=== PATIENT | male | born 1995 | race African-American/Black ===

== ENCOUNTER 2016-10-01 01:09 | Emergency (ER) | payer SELFPAY ==
[~2016-10-01] VITALS: Ht 190.5 cm; Wt 86.0 kg
[2016-10-01 01:11] VITALS: BP 126/74; PULSE 70; RESP 16; TEMP 97.5; O2SAT 98
[2016-10-01] MEDS ORDERED: AZITHROMYCIN PWD FOR SUSP 1 GM PACKET PO ONE (02:45)
[2016-10-01] MEDS ORDERED: LIDOCAINE HCL 1% 50 ML VIAL IM ONE (02:45)
[2016-10-01] MEDS ORDERED: cefTRIAXone 250 MG VIAL IM ONE (02:45)
--- NOTE | 2016-10-01 02:47 | PD ---
HPI Chief Complaint: Complaint Time Seen by Provider: 02:38 Travel History International Travel<30 days: No Contact w/Intl Traveler<30days: No Traveled to known affect area: No History of Present Illness HPI 21-year-old male presents requesting evaluation. His girlfriend was recently diagnosed with chlamydia at [facility]. The patient wants to be tested for chlamydia. He has no symptoms. Denies dysuria, urethral discharge, skin lesions. No other complaints. PFSH Past Medical History Medical History: Denies Significant Hx Diminished Hearing: No Past Surgical History Surgical History: No Previous Surgery Social History Alcohol Use: Yes (OCC) Tobacco Use: No Substance Use: No Allergies-Medications (Allergen,Severity, Reaction): Coded Allergies: No Known Allergies (Unverified , 10/01/16) Review of Systems Except as stated in HPI: all other systems reviewed are Neg Physical Exam Narrative GENERAL: Well-developed well-nourished male in no acute distress GASTROINTESTINAL: Abdomen soft, non-tender, nondistended. Hepatic and splenic margins not palpable. : No urethral discharge, no skin lesions, no tenderness to palpation of the scrotum or testicles. Data Data Last Documented VS Vital Signs Date Time Temp Pulse Resp B/P Pulse Ox O2 Delivery O2 Flow Rate FiO2 10/01/16 01:11 97.5 70 16 126/74 98 Orders Gc And Chlamydia Pcr (10/01/16 02:41) Azithromycin Powd Pack (Zithromax Powd P (10/01/16 02:45) Ceftriaxone Inj (Rocephin Inj) (10/01/16 02:45) Lidocaine 1% Inj (50 Ml) (Xylocaine 1% I (10/01/16 02:45) MDM Medical Decision Making Medical Screen Exam Complete: Yes Emergency Medical Condition: Yes Medical Record Reviewed: Yes Differential Diagnosis STD screening exam, urethritis, chlamydia Narrative Course The patient will be treated empirically with Rocephin and azithromycin. Chlamydia and gonorrhea PCR is pending. Diagnosis Primary Impression: Encounter for screening examination for chlamydial infection Additional Instructions: Use barrier contraception. Follow-up with primary care physician. Med/Other Pt SpecificInfo: No Change to Meds Disposition: 01 DISCHARGE HOME Condition: Stable Luc Barreto Oct 01, 2016 02:47
[2016-10-01 08:28] LABS: CHLAMYDIA PCR NOT DETECTED (NOT DETECT); NEISSERIA PCR NOT DETECTED (NOT DETECT)
== END 2016-10-01 03:30 | disposition home or self-care (01) ==
LOC: NEPB 01:09
DX: Z11.3 Encounter for screening for infections with a predominantly sexual mode of transmission (principal)
CPT/HCPCS: 87491; 87591; 96372; 99283; J0696

== ENCOUNTER 2016-10-29 17:39 | Observation (INO) | payer OTHER ==
[2016-10-29] VITALS (8 sets, daily range): BP systolic 127–167; BP diastolic 74–90; PULSE 77–89; RESP 15–18; TEMP 98; O2SAT 97–100
[~2016-10-29] VITALS: Ht 190.5 cm; Wt 90.0 kg
[2016-10-29] MEDS ORDERED: oxyCODONE/ACETAMINOPHEN 5 MG/325 MG TAB PO ONE (18:15)
--- NOTE | 2016-10-29 18:16 | PD ---
HPI Chief Complaint: Injury Time Seen by Provider: 17:47 Travel History International Travel<30 days: No Contact w/Intl Traveler<30days: No Traveled to known affect area: No History of Present Illness HPI Patient is a 21-year-old male who presents to emergency room with complaints of pain to his left ankle. Patient reports that he was playing basketball, reports that he went to dunk a ball and when he landed, reports that he noticed increased pain to left ankle. Patient denies any fall after he injured his ankle. Reports that he was able to "hobble" off the court. Denies pain to hip/ knee. No other c/o. PFSH Past Medical History Medical History: Denies Significant Hx Diminished Hearing: No Tetanus Vaccination: Unknown Influenza Vaccination: No Past Surgical History Surgical History: No Previous Surgery Family History Family History: Negative Social History Alcohol Use: Yes (OCC) Tobacco Use: No Substance Use: No Allergies-Medications (Allergen,Severity, Reaction): Coded Allergies: No Known Allergies (Unverified , 10/29/16) Reported Meds & Prescriptions Reported Meds & Active Scripts Active Ibuprofen 600 Mg Tab 600 Mg PO Q6H PRN Percocet (Oxycodone-Acetaminophen) 5-325 mg Tab 1 Tab PO Q6H PRN Review of Systems General / Constitutional: No: Fever Eyes: No: Visual changes HENT: No: Headaches Cardiovascular: No: Chest Pain or Discomfort Respiratory: No: Shortness of Breath Gastrointestinal: No: Abdominal Pain Genitourinary: No: Dysuria Musculoskeletal: Positive: Limited ROM, Edema, Pain (left ankle) Skin: No Rash Neurologic: No: Weakness Psychiatric: No: Depression Endocrine: No: Polydipsia Hematologic/Lymphatic: No: Easy Bruising Physical Exam Narrative GENERAL: nad SKIN: Warm and dry. HEAD: Atraumatic. Normocephalic. EYES: Pupils equal and round. No scleral icterus. No injection or drainage. ENT: No nasal bleeding or discharge. Mucous membranes pink and moist. NECK: Trachea midline. No JVD. CARDIOVASCULAR: Regular rate and rhythm. No murmur appreciated. RESPIRATORY: No accessory muscle use. Clear to auscultation. Breath sounds equal bilaterally. GASTROINTESTINAL: Abdomen soft, non-tender, nondistended. Hepatic and splenic margins not palpable. MUSCULOSKELETAL: RLE: normal exam LLE: pt with increased swelling to left ankle, pt with increased pain to plantar surface of foot near heal, no signs of open fracture, pulses intact, neurovascularly intact NEUROLOGICAL: Awake and alert. No obvious cranial nerve deficits. Motor grossly within normal limits. Normal speech. PSYCHIATRIC: Appropriate mood and affect; insight and judgment normal. Data Data Last Documented VS Vital Signs Date Time Temp Pulse Resp B/P Pulse Ox O2 Delivery O2 Flow Rate FiO2 10/29/16 17:49 Room Air 10/29/16 17:42 98.0 80 15 134/90 97 Orders Oxycodone-Acetamin 5-325 Mg (Percocet (10/29/16 18:15) Ice/Cold Pack (10/29/16 18:01) Ankle, Complete ([id number]) (10/29/16 ) Foot, Complete ([id number]) (10/29/16 ) Splint Or Brace Apply/Monitor (10/29/16 19:02) MDM Medical Decision Making Medical Screen Exam Complete: Yes Emergency Medical Condition: Yes Interpretation(s) Vital Signs Date Time Temp Pulse Resp B/P Pulse Ox O2 Delivery O2 Flow Rate FiO2 10/29/16 17:49 Room Air 10/29/16 17:42 98.0 80 15 134/90 97 Differential Diagnosis ankle fracture, ankle sprain, foot fracture Narrative Course Patient is a 21-year-old male who presents to emergency with complaints of left- sided ankle pain. Patient reports that he was playing basketball went to dunk a ball and injured his ankle when he landed. Denies any fall. Denies trauma to head/neck. Reports increased pain and swelling to left foot/ankle. xrays ordered of foot and ankle. Diagnosis Primary Impression: Ankle sprain Qualified Code: S93.402A - Sprain of left ankle, unspecified ligament, initial encounter Referrals: James Cortez MD Patient Instructions: General Instructions, Narcotic given in the ED Additional Instructions: Please provide patient with a copy of his x-ray results at discharge Please follow-up with orthopedic surgery, call first thing Monday morning for earliest appointment Please ice and elevate your lower extremity Do not drive or operate heavy machinery while taking narcotic pain medications Med/Other Pt SpecificInfo: Prescription(s) given Scripts Ibuprofen 600 Mg [id number] Mg PO Q6H PRN (Pain/Inflammation) #40 TAB Ref 0 Prov:Sissy French DO 10/29/16 Oxycodone-Acetaminophen (Percocet)5-325 mg Tab1 Tab PO Q6H PRN (PAIN) #12 TAB Ref 0 Prov:Sissy French DO 10/29/16 Disposition: 01 DISCHARGE HOME Condition: Stable Sissy French DO Oct 29, 2016 18:16
[2016-10-29] MEDS ORDERED: PERC5TAB12 PO (18:51)
[2016-10-29] MEDS ORDERED: IBUP-232 PO (18:51)
--- NOTE | 2016-10-29 19:43 | RADRPT ---
EXAM DATE/TIME: 10/29/2016 18:24 [facility] COMPARISON: No previous studies available for comparison. INDICATIONS : Left ankle pain from fall. MEDICAL HISTORY : None. SURGICAL HISTORY : None. ENCOUNTER: Initial ACUITY: 1 day PAIN SCORE: 10/10 LOCATION: Bilateral mid bottom foot. FINDINGS: There is abnormal widening of the lateral aspect of the ankle joint. There is dislocation at this yassine nt abnormal widening of the calcaneocuboid joint small avulsion fracture suspected between the calcan eus and cuboid. CONCLUSION: 1. Dislocation at the talonavicular joint and abnormal widening of the calcaneocuboid joint with a sm all avulsion fracture. Also abnormal widening of the lateral aspect of the ankle joint. Barrington Lowery MD on October 29, 2016 at 19:40 Board Certified Radiologist. This report was verified electronically.
[2016-10-29] MEDS ORDERED: MORPHINE SULFATE 8 MG/ML INJ IM ONE (19:45)
--- NOTE | 2016-10-29 19:45 | RADRPT ---
EXAM DATE/TIME: 10/29/2016 18:29 [facility] COMPARISON: No previous studies available for comparison. INDICATIONS : Left foot pain from fall. MEDICAL HISTORY : None. SURGICAL HISTORY : None. ENCOUNTER: Initial ACUITY: 1 day PAIN SCORE: 10/10 LOCATION: Bilateral mid bottom foot. FINDINGS: Examination reveals a dislocation at the talonavicular joint and abnormal widening of the calcaneocub oid joint associated with a small avulsion fracture. Metatarsals and phalanges appear intact. CONCLUSION: 1. Dislocation of the talonavicular joint and abnormal widening of the calcaneocuboid joint with smal l avulsion fracture. Barrington Lowery MD on October 29, 2016 at 19:42 Board Certified Radiologist. This report was verified electronically.
[2016-10-29] MEDS ORDERED: PROPOFOL 200 MG/20 ML AMP IV ONE (20:15)
--- NOTE | 2016-10-29 20:42 | PD ---
Data Data Last Documented VS Vital Signs Date Time Temp Pulse Resp B/P Pulse Ox O2 Delivery O2 Flow Rate FiO2 10/29/16 20:22 81 17 167/74 99 Room Air 10/29/16 17:42 98.0 Orders Oxycodone-Acetamin 5-325 Mg (Percocet (10/29/16 18:15) Ice/Cold Pack (10/29/16 18:01) Ankle, Complete ([id number]) (10/29/16 ) Foot, Complete ([id number]) (10/29/16 ) Splint Or Brace Apply/Monitor (10/29/16 19:02) Morphine Inj (Morphine Inj) (10/29/16 19:45) Propofol 200 Mg/20 Ml Inj (Diprivan 200 (10/29/16 20:15) Complete Blood Count With Diff (10/29/16 20:14) Basic Metabolic Panel (Bmp) (10/29/16 20:14) Iv Access Insert/Monitor (10/29/16 20:14) Ecg Monitoring (10/29/16 20:14) Oximetry (10/29/16 20:14) MDM Supervised Visit with GERRY: No Procedures Procedure Narrative After the risks and benefits were discussed the following procedure was performed: MODERATE SEDATION: The patient was placed on a order desk clerk and pulse oximetry. An ambu bag and suction was immediately available at bedside. The patient was monitored by the nurse. Oxygen saturation, and tidal capnography, heart rate and blood pressure were monitored. Procedural sedation was acheived using 140 mg propofol. The patient was observed until awake and alert. Procedural Sedation time in attendance was 20 minutes. Diagnosis Primary Impression: Ankle sprain Qualified Code: S93.402A - Sprain of left ankle, unspecified ligament, initial encounter Referrals: James Cortez MD Patient Instructions: General Instructions, Narcotic given in the ED Additional Instruction: Please provide patient with a copy of his x-ray results at discharge Please follow-up with orthopedic surgery, call first thing Monday morning for earliest appointment Please ice and elevate your lower extremity Do not drive or operate heavy machinery while taking narcotic pain medications Scripts Ibuprofen 600 Mg Aid159 Mg PO Q6H PRN (Pain/Inflammation) #40 TAB Ref 0 Prov:Sissy French DO 10/29/16 Oxycodone-Acetaminophen (Percocet)5-325 mg Tab1 Tab PO Q6H PRN (PAIN) #12 TAB Ref 0 Prov:Sissy French DO 10/29/16 Disposition: 01 DISCHARGE HOME Condition: Stable Jennifer Carreno MD Oct 29, 2016 20:42
[2016-10-29 21:00] LABS: AUTOMATED NEUTROPHIL # 10.9 TH/MM3 (1.8-7.7); BASOPHIL % 0.3 % (0.0-2.0); EOSINOPHIL % 0.2 % (0.0-4.0); HEMATOCRIT 47.4 % (39.0-51.0); HEMO FLAGS DIFF FINAL; LYMPH % 7.1 % (9.0-44.0); LYMPHOCYTE # 0.9 TH/MM3 (1.0-4.8); MEAN CELL VOLUME 86.9 FL (80.0-100.0); MEAN CORPUSCULAR HEMOGLOBIN 29.3 PG (27.0-34.0); MEAN CORPUSCULAR HGB CONC 33.7 % (32.0-36.0); MONO % 4.3 % (0.0-8.0); NEUT % 88.1 % (16.0-70.0); PLATELET COUNT 293 TH/MM3 (150-450); RED BLOOD COUNT 5.45 MIL/MM3 (4.50-5.90); RED CELL DISTRIBUTION WIDTH 13.4 % (11.6-17.2); WHITE BLOOD COUNT 12.3 TH/MM3 (4.0-11.0)
[2016-10-29] MEDS ORDERED: ACETAMINOPHEN/HYDROcodone 325 MG/5 MG TAB PO PRN (21:15)
[2016-10-29] MEDS ORDERED: SODIUM CHLORIDE 0.9% FLUSH 5 ML FLUSH FLUSH PRN (21:15)
[2016-10-29] MEDS ORDERED: BISACODYL 10 MG SUPP PR PRN (21:15)
[2016-10-29] MEDS ORDERED: ACETAMINOPHEN 325 MG TAB PO PRN (21:15)
[2016-10-29] MEDS ORDERED: ONDANSETRON HCL 4 MG/2 ML VIAL IVP PRN (21:15)
--- NOTE | 2016-10-29 21:17 | HHI.HP ---
[facility] Robert Henriquez MD Admission Diagnosis Diagnoses: (1) Foot fracture Diagnosis: Principal (2) HTN (hypertension) Diagnosis: Principal (3) Leukocytosis Diagnosis: Principal Travel History International Travel<30 Days: No Contact w/Intl Traveler <30 Da: No Traveled to Known Affected Are: No History of Present Illness This is a 21-year-old male with no significant PMH who was brought to the ER with complaints of left ankle pain after playing basketball. Pt states he went to [employer] and when he landed he felt immediate pain to left ankle/foot. Unable to ambulate after injury. On arrival, BP 167/74, HR 81, O2 sat 99% on RA, Afebrile. WBC 12.3. Chemistry unremarkable. Foot X-ray with dislocation of talonavicular joint and abnormal widening of calcaneocuboid joint w/ small avulsion fracture, s/p reduction in ER. Dr. Cortez consulted by ER physician, plan is for surgical intervention in am. Review of Systems Other ROS: 14 point review of systems otherwise negative. Past Family Social History Past Medical History PMH: None Past Surgical History PAST SURGICAL HISTORY: None Allergies: Coded Allergies: No Known Allergies (Unverified , 10/29/16) Family History PAST FAMILY HISTORY: Reviewed. No h/o DM or CAD Social History PAST SOCIAL HISTORY: Occasional alcohol. Negative for tobacco or drugs. Physical Exam Vital Signs Vital Signs Date Time Temp Pulse Resp B/P Pulse Ox O2 Delivery O2 Flow Rate FiO2 10/29/16 20:57 89 18 152/76 100 Nasal Cannula 3 10/29/16 20:39 100 Nasal Cannula 3.00 10/29/16 20:39 100 10/29/16 20:39 100 3.00 10/29/16 20:35 81 16 157/77 100 Nasal Cannula 3 10/29/16 20:22 81 17 167/74 99 Room Air 10/29/16 20:21 99 Room Air 10/29/16 19:51 77 18 164/90 100 Room Air 10/29/16 17:49 Room Air 10/29/16 17:42 98.0 80 15 134/90 97 Physical Exam PE: GENERAL: Pleasant young black male in no acute distress. HEENT: PERRLA, EOMI. No scleral icterus or conjunctival pallor. No lid lag or facial droop. CARDIOVASCULAR: Regular rate and rhythm. No obvious murmurs to auscultation. No chest tenderness to palpation. RESPIRATORY: No obvious rhonchi or wheezing. Clear to auscultation. Breath sounds equal bilaterally. GASTROINTESTINAL: Abdomen soft, non-tender, nondistended. BS normal. MUSCULOSKELETAL: Left ankle s/p reduction. Decreased ROM due to injury. NEUROLOGICAL: Awake, alert and oriented x4. No focal neurologic deficits. Moving both upper and lower extremities spontaneously. Laboratory Laboratory Tests Test 10/29/16 20:25 White Blood Count 12.3 Red Blood Count 5.45 Hemoglobin 16.0 Hematocrit 47.4 Mean Corpuscular Volume 86.9 Mean Corpuscular Hemoglobin 29.3 Mean Corpuscular Hemoglobin 33.7 Concent Red Cell Distribution Width 13.4 Platelet Count 293 Mean Platelet Volume 8.1 Neutrophils (%) (Auto) 88.1 Lymphocytes (%) (Auto) 7.1 Monocytes (%) (Auto) 4.3 Eosinophils (%) (Auto) 0.2 Basophils (%) (Auto) 0.3 Neutrophils # (Auto) 10.9 Lymphocytes # (Auto) 0.9 Monocytes # (Auto) 0.5 Eosinophils # (Auto) 0.0 Basophils # (Auto) 0.0 CBC Comment DIFF FINAL Differential Comment Result Diagram: 10/29/162024 Assessment and Plan Problem List: (1) Foot fracture ICD Code: S92.909A Status: Acute (2) Leukocytosis ICD Code: D72.829 Status: Acute (3) HTN (hypertension) ICD Code: I10 Status: Acute Assessment and Plan A/P: 1. Left Foot Fx: s/p injury while playing basketball. X-ray w/ dislocation at talonavicular joint and abnormal widening of the calcaneocuboid joint with avulsion fracture, images reviewed by me. Dr. Cortez consulted by ER physician , plan for surgical intervention in am. NPO, IVF, analgescis/antiemetics as needed. 2. Leukocytosis: WBC 12, likely secondary to acute injury/fall. No evidence of infection. Repeat labs in am. 3. HTN: BP 160's on arrival, likely compounded by pain. Will monitor, no h/o HTN. Pain control. 4. DVT Prophylaxis: Anticoagulation post op per Ortho 5. Social work for d/c planning as needed. 6. Case discussed w/ ER physician at length Physician Certification 2 Midnight Certification Type: Admission for Inpatient Services Order for Inpatient Services The services are ordered in accordance with Medicare regulations or non- Medicare payer requirements, as applicable. In the case of services not specified as inpatient-only, they are appropriately provided as inpatient services in accordance with the 2-midnight benchmark. Estimated LOS (days): 2 days is the estimated time the patient will need to remain in the hospital, assuming treatment plan goals are met and no additional complications. Post-Hospital Plan: Not yet determined Estefany Cardenas MD Oct 29, 2016 21:17
[2016-10-29 21:21] LABS: BICARBONATE 29.4 MEQ/L (21.0-32.0); POTASSIUM 4.1 MEQ/L (3.5-5.1)
[2016-10-29] MEDS: SODIUM CHLOR 0.9% 1000 ML INJ 1,000 ML IV SCH (21:38)
[2016-10-29] MEDS: MORPHINE SULFATE 4 MG/ML INJ IV PRN (21:47)
--- NOTE | 2016-10-29 21:49 | RADRPT ---
EXAM DATE/TIME: 10/29/2016 21:10 [facility] COMPARISON: No previous studies available for comparison. INDICATIONS : Trauma; left foot pain. Post reduction. RADIATION DOSE: 7.29 CTDIvol (mGy) MEDICAL HISTORY : None SURGICAL HISTORY : None. ENCOUNTER: Initial ACUITY: 1 day PAIN SCALE: 10/10 LOCATION: Left foot TECHNIQUE: Volumetric scanning of the foot was performed. Using automated exposure control and adjustment of th e mA and/or kV according to patient size, radiation dose was kept as low as reasonably achievable to obtain optimal diagnostic quality images. FINDINGS: Previous talonavicular dislocations or plain film is a slightly comminuted fracture through the infer ior aspect navicular. Several small avulsed bone fragments are present in the distal talus and adjace nt to the calcaneocuboid joint. Previous abnormal widening of the calcaneocuboid joint is tiny avulsi on fracture of the anterior aspect of the calcaneus. The remainder of the tarsal bones and the metata rsals and phalanges appear intact. The ankle mortise appears intact. CONCLUSION: 1. Reduction of previous dislocation at the talonavicular joint with mildly comminuted fracture of th e inferior aspect of the navicular. Small avulsion fractures remain adjacent to the anterior calcaneu s and calcaneocuboid joint. No significant abnormal widening of the calcaneocuboid joint or of the an kle joint. Barrington Lowery MD on October 29, 2016 at 21:41 Board Certified Radiologist. This report was verified electronically.
--- NOTE | 2016-10-29 23:40 | PD ---
Physical Exam Narrative GENERAL: Well-nourished, well-developed patient. SKIN: Warm and dry. HEAD: Normocephalic and atraumatic. EYES: No injection or drainage. ENT: No nasal drainage noted. NECK: Supple, trachea midline. CARDIOVASCULAR: Regular rate and rhythm RESPIRATORY: Breath sounds equal bilaterally. No accessory muscle use. GASTROINTESTINAL: Abdomen soft, non-tender, nondistended. EXTREMITIES: Pain with palpation of left foot with deformity noted, no pain with other joints , neurovascularly intact, no lacerations over, compartments soft. NEUROLOGICAL: Awake and alert. Motor and sensory grossly within normal limits. Normal speech. Data Data Last Documented VS Vital Signs Date Time Temp Pulse Resp B/P Pulse Ox O2 Delivery O2 Flow Rate FiO2 10/29/16 20:57 89 18 152/76 100 Nasal Cannula 3 10/29/16 17:42 98.0 Orders Oxycodone-Acetamin 5-325 Mg (Percocet (10/29/16 18:15) Ice/Cold Pack (10/29/16 18:01) Ankle, Complete ([id number]) (10/29/16 ) Foot, Complete ([id number]) (10/29/16 ) Splint Or Brace Apply/Monitor (10/29/16 19:02) Morphine Inj (Morphine Inj) (10/29/16 19:45) Propofol 200 Mg/20 Ml Inj (Diprivan 200 (10/29/16 20:15) Complete Blood Count With Diff (10/29/16 20:14) Basic Metabolic Panel (Bmp) (10/29/16 20:14) Iv Access Insert/Monitor (10/29/16 20:14) Ecg Monitoring (10/29/16 20:14) Oximetry (10/29/16 20:14) Splint Or Brace Apply/Monitor (10/29/16 20:45) Ct Foot W/O Contrast (10/29/16 ) Admit To Inpatient (10/29/16 ) Vital Signs (Adult) Q4H (10/29/16 21:14) Activity Bed Rest (10/29/16 21:14) Diet Npo (10/30/16 Breakfast) Sodium Chlor 0.9% 1000 Ml Inj (Ns 1000 M (10/29/16 21:14) Sodium Chloride 0.9% Flush (Ns Flush) (10/29/16 21:15) Sodium Chloride 0.9% Flush (Ns Flush) (10/30/16 09:00) Ondansetron Inj (Zofran Inj) (10/29/16 21:15) Bisacodyl Supp (Dulcolax Supp) (10/29/16 21:15) Comprehensive Metabolic Panel (10/30/16 06:00) Complete Blood Count With Diff (10/30/16 06:00) Acetaminophen (Tylenol) (10/29/16 21:15) Acetamin-Hydrocod 325-5 Mg ([place] 5-325 (10/29/16 21:15) Morphine Inj (Morphine Inj) (10/29/16 21:15) Inpatient Certification (10/29/16 ) Consult Orthopedic (10/29/16 ) (Hub Use Only)Inp Phy Cons/Ref (10/29/16 ) Admit Order (Ed Use Only) (10/29/16 21:34) Labs Laboratory Tests Test 10/29/16 20:25 White Blood Count 12.3 TH/MM3 Red Blood Count 5.45 MIL/MM3 Hemoglobin 16.0 GM/DL Hematocrit 47.4 % Mean Corpuscular Volume 86.9 FL Mean Corpuscular Hemoglobin 29.3 PG Mean Corpuscular Hemoglobin 33.7 % Concent Red Cell Distribution Width 13.4 % Platelet Count 293 TH/MM3 Mean Platelet Volume 8.1 FL Neutrophils (%) (Auto) 88.1 % Lymphocytes (%) (Auto) 7.1 % Monocytes (%) (Auto) 4.3 % Eosinophils (%) (Auto) 0.2 % Basophils (%) (Auto) 0.3 % Neutrophils # (Auto) 10.9 TH/MM3 Lymphocytes # (Auto) 0.9 TH/MM3 Monocytes # (Auto) 0.5 TH/MM3 Eosinophils # (Auto) 0.0 TH/MM3 Basophils # (Auto) 0.0 TH/MM3 CBC Comment DIFF FINAL Differential Comment Sodium Level 137 MEQ/L Potassium Level 4.1 MEQ/L Chloride Level 101 MEQ/L Carbon Dioxide Level 29.4 MEQ/L Anion Gap 7 MEQ/L Blood Urea Nitrogen 13 MG/DL Creatinine 1.18 MG/DL Estimat Glomerular Filtration 94 ML/MIN Rate Random Glucose 103 MG/DL Calcium Level 9.1 MG/DL [facility] Supervised Visit with GERRY: No Interpretation(s) Last 24 hours Impressions Lower Extremity CT 10/29/16 Signed Impressions: Service Date/Time: Saturday, October 29, 2016 21:10 - CONCLUSION: 1. Reduction of previous dislocation at the talonavicular joint with mildly comminuted fracture of the inferior aspect of the navicular. Small avulsion fractures remain adjacent to the anterior calcaneus and calcaneocuboid joint. No significant abnormal widening of the calcaneocuboid joint or of the ankle joint. Barrington Lowery MD Foot X-Ray 10/29/16 Signed Impressions: Service Date/Time: Saturday, October 29, 2016 18:29 - CONCLUSION: 1. Dislocation of the talonavicular joint and abnormal widening of the calcaneocuboid joint with small avulsion fracture. Barrington Lowery MD Ankle X-Ray 10/29/16 Signed Impressions: Service Date/Time: Saturday, October 29, 2016 18:24 - CONCLUSION: 1. Dislocation at the talonavicular joint and abnormal widening of the calcaneocuboid joint with a small avulsion fracture. Also abnormal widening of the lateral aspect of the ankle joint. Barrington Lowery MD Narrative Course Signed over to me to follow x-rays and reevaluate, x-rays with talonavicular dislocation and widening of calcaneal cuboid joint with avulsion fracture will discuss with podiatry Patient updated and agrees to reduction Patient updated and agrees to admission feeling better after reduction Procedures Procedure Narrative After the risks and benefits were discussed the following procedure was performed: With conscious sedation using propofol with Dr. Carreno, I personally reduced the talonavicular on the left was successful with downward pressure and countertraction, was neurovascularly intact after, patient tolerated procedure. Physician Communication Physician Communication dr miller states to discuss with ortho given he does not have ankle privileges dr melendez states to reduce and call back dr melendez states to check ct and admit to medicine and he will see patient, npo after midnight dr bermudez agrees to admit Diagnosis Primary Impression: Closed navicular fracture of left foot Additional Impression: Closed dislocation of navicular bone of left foot Margareth May MD Oct 29, 2016 23:39
[2016-10-30] MEDS: LACTATED RINGER'S 1000 ML IV SCH
[2016-10-30 00:25] VITALS: BP 145/81; PULSE 73; RESP 16; TEMP 98.2; O2SAT 98
[2016-10-30] MEDS: MORPHINE SULFATE 4 MG/ML INJ IV PRN ×4 (00:43→12:16)
[2016-10-30 04:25] VITALS: BP 141/77; PULSE 72; RESP 16; TEMP 96.8; O2SAT 99
[2016-10-30 08:00] VITALS: BP 149/93; PULSE 69; RESP 18; TEMP 97.6; O2SAT 100
[2016-10-30 08:07] LABS: AUTOMATED NEUTROPHIL # 6.9 TH/MM3 (1.8-7.7); BASOPHIL % 0.2 % (0.0-2.0); EOSINOPHIL # 0.1 TH/MM3 (0-0.4); HEMATOCRIT 42.3 % (39.0-51.0); HEMO FLAGS DIFF FINAL; LYMPH % 23.6 % (9.0-44.0); LYMPHOCYTE # 2.5 TH/MM3 (1.0-4.8); MEAN CELL VOLUME 87.1 FL (80.0-100.0); MEAN CORPUSCULAR HEMOGLOBIN 29.7 PG (27.0-34.0); MEAN CORPUSCULAR HGB CONC 34.2 % (32.0-36.0); MONO % 11.1 % (0.0-8.0); NEUT % 64.1 % (16.0-70.0); PLATELET COUNT 239 TH/MM3 (150-450); RED BLOOD COUNT 4.86 MIL/MM3 (4.50-5.90); RED CELL DISTRIBUTION WIDTH 13.2 % (11.6-17.2); WHITE BLOOD COUNT 10.7 TH/MM3 (4.0-11.0)
[2016-10-30 08:32] LABS: ALT (GPT) 24 U/L (12-78); ANION GAP 6 MEQ/L (5-15); AST (GOT) 40 U/L (15-37); BICARBONATE 30.3 MEQ/L (21.0-32.0); BLOOD UREA NITROGEN 10 MG/DL (7-18); CHLORIDE 106 MEQ/L (98-107); GLOMERULAR FILTRATION RATE 101 ML/MIN (>89); POTASSIUM 4.2 MEQ/L (3.5-5.1); SODIUM (NA) 142 MEQ/L (136-145)
[2016-10-30 08:34] LABS: ALKALINE PHOSPHATASE 67 U/L (45-117); TOTAL BILIRUBIN ADULT 0.9 MG/DL (0.2-1.0)
[2016-10-30] MEDS: SODIUM CHLORID 0.9% 500 ML IV SCH ×2 (09:25)
[2016-10-30] MEDS: SODIUM CHLORIDE 0.9% FLUSH 5 ML FLUSH FLUSH SCH ×2 (09:25→21:38)
[2016-10-30] MEDS: SODIUM CHLOR 0.9% 1000 ML INJ 1,000 ML IV SCH (09:30)
[2016-10-30 12:00] VITALS: BP 145/97; PULSE 67; RESP 18; TEMP 96.3; O2SAT 100
[2016-10-30 16:00] VITALS: BP 153/73; PULSE 67; RESP 18; TEMP 96.6; O2SAT 98
--- NOTE | 2016-10-30 16:34 | MB ---
cc: DANIEL ALVARENGA M.D. DATE OF CONSULTATION: 10/30/2016 REASON FOR CONSULTATION: Left foot dislocation. HISTORY OF PRESENT ILLNESS: The patient is a 21-year-old man who does not significant past medical history. He came to [facility] after sustaining an injury to the left foot. He said that he jumped off the foot and felt something happen rate where he developed pain. He went up for an alley-oop and remembered that he did not want to come down from it because he was afraid of landing on that foot. He was brought to [facility] with significant amount of pain about the mid foot. X-rays were taken. Initially podiatry was consulted. They recommended orthopedic evaluation. I discussed the results of the x-rays with the emergency room physician, which showed a talonavicular dislocation and what looked like an impaction fracture of the inferior aspect of the navicular. I discussed with the emergency room physician methods for reducing this dislocation as this is a fairly uncommon type of dislocation. The ER physician was able to successfully reduce the foot in the ER and they then obtained a CT scan which I reviewed with the ER physician. The patient was admitted and placed on a cold machine. PAST MEDICAL HISTORY: Medical history is negative. PAST SURGICAL HISTORY: Surgical history is - none. ALLERGIES: NO KNOWN DRUG ALLERGIES. FAMILY HISTORY: Noncontributory. SOCIAL HISTORY: The patient drinks occasional alcohol. Negative for tobacco or drugs. REVIEW OF SYSTEMS: A twelve-point review of systems is negative except as noted in the history of present illness. PHYSICAL EXAMINATION: VITAL SIGNS: The patient's temperature is 98.2, pulse is 77, respirations 16, blood pressure 145/97. GENERAL: He is in no acute distress due to pain. HEAD, EYES, EARS, NOSE, THROAT: The patient's head is atraumatic. The oropharynx is moist. Extraocular muscles intact. NECK: The neck is supple. HEART: Regular rate and rhythm. LUNGS: Clear to auscultation bilaterally. ABDOMEN: The abdomen is soft, nontender and nondistended. NEUROLOGIC: He has normal affect, insight and judgment. EXTREMITIES: His left foot is currently splinted. He has brisk capillary refill about the toes. He has normal sensation about the toes. Examination of the right lower extremity and the bilateral upper extremities shows good range of motion and normal alignment. No tenderness. LABORATORY DATA: Laboratory studies shows white cell count of 12.3, hematocrit 47.4, platelets 293,000. IMAGING STUDIES: I reviewed the images and the report of the x-rays and also the CT scan which shows the patient has a talonavicular dislocation and also widening of the calcaneocuboid joint and there is also evidence of some shifting of the talus with some tilting. The postreduction CT scan shows that the dislocation has been reduced and the previous widening of those other joints has been reduced as well. The patient has a fractured inferior aspect of the navicular which is interarticular by encompasses only a small portion. There are some avulsions that are noted around the anterior calcaneus and the calcaneocuboid joint as well. IMPRESSION: Left foot status post talonavicular dislocation with widening of the calcaneocuboid joint and also of the mortise with some tilting status post closed reduction with overall very good alignment and small avulsion fractures of the anterior calcaneus and calcaneocuboid joint with fracture interarticular inferior aspect of the navicular. DECISION-MAKING: This is a very complex injury that this patient has sustained. I do recommend nonoperative management for this condition. We did discuss the possibility of surgery for the inferior impaction fracture of the navicular, although given the results of the CT scan, I feel that it would probably be best to move forward with nonoperative management as this area would be very difficult to obtain a reduction without significant soft tissue exposure and I do not feel that this would significantly improve this patient's outcome. He does have significant risk for chronic stiffness and pain around these joints and development of arthritis as well due to the injury. He should be non-weightbearing. He understands this. He can be discharged as soon as his pain is well-controlled with followup in the office in one week. Daniel Alvarenga MD /JCFay /2:42 PM /4:21 PM
[2016-10-30] MEDS ORDERED: MISC-226 (16:56)
--- NOTE | 2016-10-30 17:01 | HHI.PR ---
Subjective Remarks Patient seen this morning.. Says he feels well. Denies any chest pain or shortness of breath. Denies any nausea or vomiting. Reports still with pain in left foot. Liter discussed with nurse. Discussed post surgery. Has been switched over to by mouth pain medications. We'll start on regular diet. Equipment not ready at home yet per nursing. Objective Vital Signs Date Time Temp Pulse Resp B/P Pulse Ox O2 Delivery O2 Flow Rate FiO2 10/30/16 12:00 96.3 67 18 145/97 100 10/30/16 08:00 97.6 69 18 149/93 100 10/30/16 04:25 96.8 72 16 141/77 99 10/30/16 00:25 98.2 73 16 145/81 98 10/29/16 22:04 77 16 127/78 100 Room Air 10/29/16 20:57 89 18 152/76 100 Nasal Cannula 3 10/29/16 20:39 100 Nasal Cannula 3.00 10/29/16 20:39 100 10/29/16 20:39 100 3.00 10/29/16 20:35 81 16 157/77 100 Nasal Cannula 3 10/29/16 20:22 81 17 167/74 99 Room Air 10/29/16 20:21 99 Room Air 10/29/16 19:51 77 18 164/90 100 Room Air 10/29/16 17:49 Room Air 10/29/16 17:42 98.0 80 15 134/90 97 I/O 10/29/16 10/29/16 10/29/16 10/30/16 10/30/16 10/30/16 07:00 15:00 23:00 07:00 15:00 23:00 Intake Total 0 ml 267 ml Balance 0 ml 267 ml Intake Oral 0 ml IV Total 267 ml # Voids 1 # Bowel Movements 0 Result Diagram: 10/30/16 0650 10/30/16 0650 Objective Remarks GENERAL: Patient lying in bed. Appears comfortable. Left foot dressed. Intact. Alert and oriented 3. SKIN: Warm and dry. HEAD: Normocephalic. EYES: No scleral icterus. No injection or drainage. NECK: Supple, trachea midline. No JVD. CARDIOVASCULAR: Regular rate and rhythm without murmurs, gallops, or rubs. RESPIRATORY: Breath sounds equal bilaterally. No accessory muscle use. GASTROINTESTINAL: Abdomen soft, non-tender, nondistended. MUSCULOSKELETAL: No cyanosis, or edema. BACK: Nontender without obvious deformity. No CVA tenderness. A/P Assessment and Plan //Left foot fracture. Cleared by surgery for discharge. Follow-up with orthopedics as outpatient. -Adjust pain meds to by mouth. -Can discharge home when patient able to use crutches Hypertensive. Blood pressure up to 160s systolic on arrival. 140s today systolic. Likely secondary to pain. Pain controlled Leukocytosis. Resolved Prophylaxis. As per surgical service. Discharge Planning Can discharge when able to use crutches. When tolerating diet. When pain controlled on by mouth pain medications. Demond Mcginnis MD Oct 30, 2016 17:01
[2016-10-30] MEDS: ACETAMINOPHEN/HYDROcodone 325 MG/10 MG TAB PO PRN ×2 (17:31→21:37)
[2016-10-30 20:55] VITALS: BP 138/80; PULSE 75; RESP 16; TEMP 96; O2SAT 99
[2016-10-30] MEDS ORDERED: INSULIN HUMAN REGULAR 1,000 UNITS/10 ML VIAL SQ PRN (22:45)
[2016-10-31] MEDS: LACTATED RINGER'S 1000 ML IV SCH
[2016-10-31 00:45] VITALS: BP 147/77; PULSE 76; RESP 16; TEMP 97.3; O2SAT 98
[2016-10-31] MEDS: ACETAMINOPHEN/HYDROcodone 325 MG/10 MG TAB PO PRN ×4 (01:35→16:27)
[2016-10-31 08:00] VITALS: BP 132/83; PULSE 68; RESP 16; TEMP 95.7; O2SAT 98
[2016-10-31] MEDS: SODIUM CHLORIDE 0.9% FLUSH 5 ML FLUSH FLUSH SCH (09:00)
[2016-10-31 12:00] VITALS: BP 129/83; PULSE 71; RESP 18; TEMP 96.1; O2SAT 98
--- NOTE | 2016-11-15 17:37 | HHI.DS ---
Discharge Summary Admission Date Oct 29, 2016 at 21:42 Discharge Date: Oct 31, 2016 Admitting Diagnosis (1) Foot fracture ICD Code: S92.909A (2) Leukocytosis ICD Code: D72.829 (3) HTN (hypertension) ICD Code: I10 Procedures no invasive procedures performed. Brief History - From Admission This is a 21-year-old male with no significant PMH who was brought to the ER with complaints of left ankle pain after playing basketball. Pt states he went to dunk and when he landed he felt immediate pain to left ankle/foot. Unable to ambulate after injury. On arrival, BP 167/74, HR 81, O2 sat 99% on RA, Afebrile. WBC 12.3. Chemistry unremarkable. Foot X-ray with dislocation of talonavicular joint and abnormal widening of calcaneocuboid joint w/ small avulsion fracture, s/p reduction in ER. Dr. Cortez consulted by ER physician, plan is for surgical intervention in am. Imaging Last Impressions Lower Extremity CT 10/29/16 Signed Impressions: Service Date/Time: Saturday, October 29, 2016 21:10 - CONCLUSION: 1. Reduction of previous dislocation at the talonavicular joint with mildly comminuted fracture of the inferior aspect of the navicular. Small avulsion fractures remain adjacent to the anterior calcaneus and calcaneocuboid joint. No significant abnormal widening of the calcaneocuboid joint or of the ankle joint. Barrington Lowery MD Foot X-Ray 10/29/16 0000 Signed Impressions: Service Date/Time: Saturday, October 29, 2016 18:29 - CONCLUSION: 1. Dislocation of the talonavicular joint and abnormal widening of the calcaneocuboid joint with small avulsion fracture. Barrington Lowery MD Ankle X-Ray 10/29/16 0000 Signed Impressions: Service Date/Time: Saturday, October 29, 2016 18:24 - CONCLUSION: 1. Dislocation at the talonavicular joint and abnormal widening of the calcaneocuboid joint with a small avulsion fracture. Also abnormal widening of the lateral aspect of the ankle joint. Barrington Lowery MD PE at Discharge GENERAL: Patient lying in bed. Appears comfortable. Left foot dressed. Intact. Alert and oriented 3. SKIN: Warm and dry. HEAD: Normocephalic. EYES: No scleral icterus. No injection or drainage. NECK: Supple, trachea midline. No JVD. CARDIOVASCULAR: Regular rate and rhythm without murmurs, gallops, or rubs. RESPIRATORY: Breath sounds equal bilaterally. No accessory muscle use. GASTROINTESTINAL: Abdomen soft, non-tender, nondistended. MUSCULOSKELETAL: No cyanosis, or edema. left foot dressed and bandaged as before. BACK: Nontender without obvious deformity. No CVA tenderness. Pt update on day of discharge patient says he is feeling well. Denies any chest pain or shortness of breath. Reports pain is under control. Still no bowel movement. Does not wish to have bowel movement in the hospital. Says he will purchase laxatives at home if necessary for constipation. Hospital Course Surgery was deemed unnecessary. Patient was instructed on use of crutches. Pain medication switched to by mouth. Discharged home with follow-up orthopedics. For problem-based summary from most recent progress note, please see below. //Left foot fracture. Cleared by surgery for discharge. Follow-up with orthopedics as outpatient. -Adjust pain meds to by mouth. -Can discharge home when patient able to use crutches Hypertensive. Blood pressure up to 160s systolic on arrival. 140s today systolic. Likely secondary to pain. Pain controlled Leukocytosis. Resolved Prophylaxis. As per surgical service. Pt Condition on Discharge: Good Discharge Disposition: Discharge Home Discharge Time: <= 30 minutes Discharge Instructions DIET: Follow Instructions for: As Tolerated, No Restrictions Activities you can perform: Non Weight Bearing Other Activity Instructions: Do not bear weight on affected foot. Follow up Referrals: Orthopedics with James Cortez MD New Medications: Crutches/Quick-Fit (Quick-Fit Crutches) 1 Mis Mis 1 EA .ROUTE DIRECTED #2 Demond Brady MD Nov 15, 2016 17:36
== END 2016-10-31 16:35 | disposition home or self-care (01) ==
LOC: NEPC 17:39 → NEDA 21:42 → N06B 22:24
PROVIDERS: ADMIT Internal Medicine; ATTEND Internal Medicine
DX: S93.402A Sprain of unspecified ligament of left ankle, initial encounter (principal); S92.255A Nondisplaced fracture of navicular [scaphoid] of left foot, initial encounter for closed fracture; D72.829 Elevated white blood cell count, unspecified; I10 Essential (primary) hypertension; Y93.67 Activity, basketball
CPT/HCPCS: 28570; 73610; 73630; 73700; 80048; 80053; 85025; 96372; 99156; 99285; G0378; J2270; J2405; J7030

== ENCOUNTER 2017-08-21 08:19 | Emergency (ER) | payer OTHER ==
[~2017-08-21] VITALS: Ht 190.5 cm; Wt 90.0 kg
[~2017-08-21 08:19] MED LIST: MISC-226
[2017-08-21 08:23] VITALS: BP 188/80; PULSE 88; RESP 12; TEMP 101.3; O2SAT 99
--- NOTE | 2017-08-21 08:54 | PD ---
HPI Chief Complaint: ENT Complaint Time Seen by Provider: 08:45 Travel History International Travel<30 days: No Contact w/Intl Traveler<30days: No Traveled to known affect area: No History of Present Illness HPI 22y male present to the ED for sore throat and fever for 2 days. Patient states that his throat is sore and feels like strep throat. Patient also states that he has felt feverish with a decreased appetite. Patient denies nausea, vomiting, diarrhea, cough, abdominal pain, back pain. Patient also complains of diminished hearing bilaterally secondary to likely cerumen impaction. Patient has a history of excessive ear wax production and requires his ears to be clean regularly. Patient does not follow with primary care physician. 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 PFSH Past Medical History Cancer: No Cardiovascular Problems: No Diabetes: No Diminished Hearing: No Genitourinary: No Musculoskeletal: No Neurologic: No Psychiatric: No Reproductive: No Respiratory: No Sickle Cell Disease: No Social History Alcohol Use: Yes (OCC) Tobacco Use: No Substance Use: No Allergies-Medications (Allergen,Severity, Reaction): Coded Allergies: No Known Allergies (Unverified Adverse Reaction, Unknown, 08/21/17) Reported Meds & Prescriptions Reported Meds & Active Scripts Active Penicillin V Potassium 500 Mg Tab 500 Mg PO BID 10 Days Review of Systems Except as stated in HPI: all other systems reviewed are Neg Physical Exam Narrative GENERAL: Well-nourished, well-developed patient, nontoxic appearing SKIN: Focused skin assessment warm/dry. HEAD: Normocephalic. EYES: No scleral icterus. No injection or drainage. THROAT: Mild pharyngeal injection, exudate and hypertrophic tonsils. No area of fluctuance. NECK: Supple, trachea midline. No JVD. Tender anterior cervical adenopathy CARDIOVASCULAR: Regular rate and rhythm without murmurs, gallops, or rubs. RESPIRATORY: Breath sounds equal bilaterally. No accessory muscle use. GASTROINTESTINAL: Abdomen soft, non-tender, nondistended. MUSCULOSKELETAL: No cyanosis, or edema. BACK: Nontender without obvious deformity. No CVA tenderness. Data Data Last Documented VS Vital Signs Date Time Temp Pulse Resp B/P (MAP) Pulse Ox O2 Delivery O2 Flow Rate FiO2 08/21/17 10:37 08/21/17 10:10 98 20 100 Room Air 08/21/17 08:23 101.3 Orders Orders Penicillin G Benzathine Inj (Bicillin L- (08/21/17 09:00) Ed Discharge Order (08/21/17 08:58) Acetaminophen (Tylenol) (08/21/17 09:30) [facility] Medical Decision Making Medical Screen Exam Complete: Yes Emergency Medical Condition: Yes Differential Diagnosis Strep pharyngitis versus viral pharyngitis versus upper respiratory infection Narrative Course 22y male present to the ED for sore throat and fever for 2 days. Patient states that his throat is sore and feels like strep throat. Patient also states that he has felt feverish with a decreased appetite. Patient denies nausea, vomiting, diarrhea, cough, abdominal pain, back pain, drooling. Patient also complains of diminished hearing bilaterally secondary to likely cerumen impaction. Patient has a history of excessive ear wax production and requires his ears to be clean regularly. Patient does not follow with primary care physician. 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 Physical exam- nontoxic-appearing , cervical lymphadenopathy, tonsillar exudates with hypertrophy. Ears irrigated today. Patient states that his symptoms are worsened by the cerumen impaction. Centor criteria used to avoid testing. Penicillin IM administered. Patient sent home with antibiotic because of frequency of strep throat. Advised patient to use if no better in 2-3 days. Patient return to ED for worsening symptoms. Diagnosis Primary Impression: Strep pharyngitis Additional Impression: Cerumen impaction Qualified Codes: H61.23 - Impacted cerumen, bilateral Referrals: Primary Care Physician Additional Instructions: Take medication as prescribed Avoid close contact with others as this is contagious. Ensure healthy diet with plenty of fluid intake. If her symptoms do not clear up and to 3 days, start penicillin prescription. Scripts Penicillin V Potassium (Penicillin V Potassium) 500 Mg Tab 500 MG PO BID for Infection for 10 Days, #20 TAB 0 Refills Prov: Regis Austin MD 08/21/17 Disposition: 01 DISCHARGE HOME Condition: Stable Tatianna Dahl Aug 21, 2017 08:54
[2017-08-21] MEDS ORDERED: PENI500T PO (08:55)
[2017-08-21] MEDS ORDERED: PENICILLIN G BENZATHINE 1,200,000 UNITS/2 ML SYRINGE IM ONE (09:00)
[2017-08-21] MEDS ORDERED: ACETAMINOPHEN 500 MG CPLT PO ONE (09:30)
[2017-08-21 10:10] VITALS: BP 133/86; PULSE 98; RESP 20; O2SAT 100
== END 2017-08-21 10:44 | disposition home or self-care (01) ==
LOC: NEPD 08:19
DX: J02.0 Streptococcal pharyngitis (principal); H61.23 Impacted cerumen, bilateral
CPT/HCPCS: 96372; 99284; J0561